=== PATIENT | female | born 1965 | race Caucasian/White ===

== ENCOUNTER → 2021-12-08 | Outpatient (CLI) | payer OTHER ==
[~2021-12-08] MED LIST: FLOMAX 0.4 MG0.4 MG PO; NORCO 7.5-3251 EACH PO; ONDANSETRON ODT4 MG SL
== END ==
LOC: KOH-I 15:22
DX: R06.00 Dyspnea, unspecified (principal); Z87.81 Personal history of (healed) traumatic fracture; S97.81XA Crushing injury of right foot, initial encounter; Z78.0 Asymptomatic menopausal state; Z74.09 Other reduced mobility; I10 Essential (primary) hypertension; I89.8 Other specified noninfective disorders of lymphatic vessels and lymph nodes; R21 Rash and other nonspecific skin eruption; R53.83 Other fatigue; E55.9 Vitamin D deficiency, unspecified
CPT/HCPCS: 71046